=== PATIENT | female | born 1950 | race Asian ===

== ENCOUNTER → 2016-11-04 | Outpatient (CLI) | payer MEDICARE ==
[~2016-11-04] MED LIST: LEVO88TA2 PO
--- NOTE | 2016-11-04 12:08 | RAD ---
Bone densitometry scan, 11/04/2016: History: Postmenopausal osteoporosis The lumbar spine and right hip were examined utilizing a DEXA technique. The bone mineral density in the lumbar spine as measured from the L1-L4 levels is 1.06 g/sq cm. This yields a T score of -1.0 which is at the borderline level for osteopenia. This has improved since 08/07/2012 at which time the lumbar spine T score was -1.6. The total T score at the right hip is -0.7. This is in the normal range. A similar value of -0.8 was obtained on the prior study. IMPRESSION: 1. Improving osteopenia in the lumbar spine as described above. 2. Normal right hip bone mineral density measurement.
== END | disposition home or self-care (01) ==
LOC: DXRAD 11:27
PROVIDERS: ATTEND Nurse Practitioner Family
DX: M85.88 Other specified disorders of bone density and structure, other site (principal); Z78.0 Asymptomatic menopausal state; Z87.891 Personal history of nicotine dependence
CPT/HCPCS: 77080

== ENCOUNTER → 2020-07-29 | Outpatient (CLI) | payer MEDICARE ==
--- NOTE | 2020-07-29 11:56 | RAD ---
INDICATION: Screening for osteopenia/osteoporosis. Postmenopausal evaluation. COMPARISON: October 2016 TECHNIQUE: Bone densitometry was performed through the lumbar spine and proximal femur. IMPRESSION: Lumbar Spine: BMD: 1.0 T-Score: -1.4 Range: Osteopenic. Decreased by 4 percent from prior Proximal Femur: BMD: 0.77 T-Score: -1.4 Range: Osteopenic. Decreased by 2 percent from prior World Health Organization Criteria for Bone Density: T-Score: > -1.0: Normal Range < -1.0 to -2.5: Osteopenic Range < -2.5: Osteoporotic Range Electronically signed by: Harlan Sanches MD (07/29/2020 11:53 AM) [id number]
== END ==
LOC: DXRAD 10:05
PROVIDERS: ATTEND Specialist
DX: Z00.00 Encounter for general adult medical examination without abnormal findings (principal); Z78.0 Asymptomatic menopausal state
CPT/HCPCS: 77080

== ENCOUNTER → 2020-08-07 | Outpatient (CLI) | payer MEDICARE ==
--- NOTE | 2020-08-07 10:41 | RAD ---
EXAM: Abdomen sonogram. HISTORY: Abnormal liver function laboratory values. TECHNIQUE: Sonographic imaging of the abdomen was performed. COMPARISON: None. FINDINGS: The liver is normal in size. No focal hepatic lesion is seen. The common bile duct is robbin l in caliber for patient age, measuring 6 mm. The gallbladder is unremarkable. The right kidney is un remarkable. The inferior vena cava is patent. The pancreas is obscured due to bowel gas. IMPRESSION: 1. No acute sonographic finding. 2. Obscured pancreas due to bowel gas. Electronically signed by: Macie Hooper MD (08/07/2020 10:39 AM) [id number]
== END ==
LOC: US 09:52
PROVIDERS: ATTEND Internal Medicine Gastroenterology
DX: R79.89 Other specified abnormal findings of blood chemistry (principal)
CPT/HCPCS: 76705

== ENCOUNTER → 2020-09-26 | Day surgery (SDC) | payer MEDICARE ==
[~2020-09-26] MED LIST changes: +GLYCOPYRROLATE 1 MG/5 ML VIAL. ONE; +IPRATRPIUM/ALBUTEROL 0.5/2.5MG 3 ML NEBU. NEB PRN; +IV RINGERS SOLUTION,LACTATED 1,000 ML IV SCH; +LIDOCAINE 2% PF 5 ML VIAL. ONE; +MIDAZOLAM HCL PF 2 MG/2 ML VIAL. IV ONE; +ONDANSETRON PF 4 MG/2 ML VIAL. IV PRN; +PROPOFOL 10,000 MCG/ML (20ML) VIAL IV ONE
[2020-09-26 12:34] VITALS: BP 113/67
[2020-09-26 13:29] LABS: ALBUMIN 3.6 g/dL (3.4-5.0); DIRECT BILIRUBIN 0.1 mg/dL (0.0-0.2); TOTAL BILIRUBIN 0.6 mg/dL (0.2-1.0); TOTAL PROTEIN 6.4 g/dL (6.4-8.2)
--- NOTE | 2020-09-29 17:07 | PATHOLOGY ---
[facility] Accession Number: [id number] . 01 Material submitted: . cecum - CECUM POLYP . 01 Clinical history: . SCREENING COLONOSCOPY . 02 Diagnosis: Colon biopsies, cecal polyp: - Tubular adenoma. ([facility]:[place]; 09/29/2020) [facility] 09/29/2020 1534 Local . 02 Comment: There is no high-grade dysplasia or evidence of malignancy. ([facility]:[place]; 09/29/2020) . 02 Electronically signed: . Thai Pimentel MD, Pathologist NPI- [id number] . 01 Gross description: . The specimen is received in formalin, labeled "Husam, Tanisha, cecum polyp". Received are 3 segments of pale vega tissue ranging in size from 0.3 to 0.4 cm in maximum dimensions. The specimen is submitted entirely in cassette A1.([facility]; 09/28/2020) [facility] 09/28/2020 1210 Local . 02 Pathologist provided ICD-10: D12.0 . 02 CPT . 145410 Specimen Comment: A courtesy copy of this report has been sent to [phone], [phone] Specimen Comment: [id number] Specimen Comment: Report sent to / DR CASTILLO Performed at: 01 [facility] [address], [place] [id number] MD Kleber Bolivar MD Phone: [phone] Performed at: 02 [facility] [address], [place] [id number] MD Thai iPmentel MD Phone: [phone]
== END | disposition home or self-care (01) ==
LOC: SURG 10:36
PROVIDERS: ATTEND Internal Medicine Gastroenterology
DX: Z12.11 Encounter for screening for malignant neoplasm of colon (principal); D12.0 Benign neoplasm of cecum; K64.0 First degree hemorrhoids; E03.9 Hypothyroidism, unspecified; E78.00 Pure hypercholesterolemia, unspecified; M81.0 Age-related osteoporosis without current pathological fracture; Z87.891 Personal history of nicotine dependence; Z72.89 Other problems related to lifestyle
CPT/HCPCS: 36415; 45380; 80076; 86803; 87340; J2001; J2704; J3490; J7120; 88305

== ENCOUNTER → 2021-07-14 | Outpatient (CLI) | payer MEDICARE ==
[2020-09-26 12:34] VITALS: BP 113/67
[~2021-07-14] MED LIST changes: -GLYCOPYRROLATE 1 MG/5 ML VIAL. ONE; -IPRATRPIUM/ALBUTEROL 0.5/2.5MG 3 ML NEBU. NEB PRN; -IV RINGERS SOLUTION,LACTATED 1,000 ML IV SCH; -LIDOCAINE 2% PF 5 ML VIAL. ONE; -MIDAZOLAM HCL PF 2 MG/2 ML VIAL. IV ONE; -ONDANSETRON PF 4 MG/2 ML VIAL. IV PRN; -PROPOFOL 10,000 MCG/ML (20ML) VIAL IV ONE
--- NOTE | 2021-07-14 17:10 | RAD ---
INDICATION: Screening for osteopenia/osteoporosis. Reason: POST MENOPAUSAL / Spl. Instructions: / H istory: COMPARISON: October 2016 TECHNIQUE: Bone densitometry was performed through the lumbar spine and proximal femur. IMPRESSION: Lumbar Spine: BMD: 1.06 T-Score: -1.0 Range: Osteopenic. Similar to prior. Proximal Femur: BMD: 0.87 T-Score: -0.7 Range: Lower limits of normal. Similar to prior. World Health Organization Criteria for Bone Density: T-Score: > -1.0: Normal Range < -1.0 to -2.5: Osteopenic Range < -2.5: Osteoporotic Range Electronically signed by: Harlan Sanches MD (07/14/2021 5:08 PM) [id number]
--- NOTE | 2021-07-14 17:16 | RAD ---
CT LOW DOSE LUNG SCREEN HISTORY: Nicotine dependency. Lung cancer screening. COMPARISON: None. TECHNIQUE: Low-dose noncontrast CT scan of the chest. FINDINGS: Aorta and great vessels: No aneurysm of the aortic arch or thoracic aorta is seen. Moderate atheroscl erotic calcification. Thyroid: No significant abnormalities. Mediastinum and andrew: No mediastinal masses or adenopathy is seen. Esophagus: The visualized esophagus is normal. Heart: The heart is normal in size. There is no pericardial effusion. Moderate coronary artery calcif ication. Airways, Lungs and Pleura: The central airways are patent. No airspace consolidation, pleural effusio n or pneumothorax. There are a few small, scattered pulmonary nodules measuring less than 4 mm. Upper abdomen: Mild diverticulosis at the splenic flexure. Osseous structures and soft tissues: Within normal limits for age. IMPRESSION: 1. Small pulmonary nodules measuring less than 4 mm. 2. Moderate coronary artery calcification. LUNG RADS: Category 2: Benign appearance or behavior. Follow up: Continue annual screening with LDCT in 12 months. Exposure: One or more of the following individualized dose reduction techniques were utilized for thi s examination: 1. Automated exposure control 2. Adjustment of the mA and/or kV according to patient size 3. Use of iterative reconstruction technique. Electronically signed by: Garrett Sen MD (07/14/2021 5:14 PM) [id number]
== END ==
LOC: CT 13:10
PROVIDERS: ATTEND Specialist
DX: Z12.2 Encounter for screening for malignant neoplasm of respiratory organs (principal); R91.8 Other nonspecific abnormal finding of lung field; F17.211 Nicotine dependence, cigarettes, in remission; M85.80 Other specified disorders of bone density and structure, unspecified site; K57.90 Diverticulosis of intestine, part unspecified, without perforation or abscess without bleeding; I25.10 Atherosclerotic heart disease of native coronary artery without angina pectoris
CPT/HCPCS: 71271; 77080